=== PATIENT | female | born 1970 | race Caucasian/White ===

== ENCOUNTER 2018-03-27 08:24 | Emergency (ER) | payer OTHER ==
[~2018-03-27] VITALS: Ht 160 cm; Wt 55.0 kg
[2018-03-27] MEDS ORDERED: HYDROCODONE/ACETAMINOPHEN 5/325MG TABLET PO ONE (09:45)
[2018-03-27] MEDS ORDERED: BACITRACIN ZINC OINT UDPKT TOP ONE (10:00)
[2018-03-27 11:31] VITALS: BP 101/64
== END 2018-03-27 11:36 | disposition home or self-care (01) ==
LOC: ER 08:24
DX: S00.81XA Abrasion of other part of head, initial encounter (principal); S10.83XA Contusion of other specified part of neck, initial encounter; S20.229A Contusion of unspecified back wall of thorax, initial encounter; S00.211A Abrasion of right eyelid and periocular area, initial encounter; V43.52XA Car driver injured in collision with other type car in traffic accident, initial encounter; Y93.89 Activity, other specified; Y92.488 Other paved roadways as the place of occurrence of the external cause
CPT/HCPCS: 70450; 72125; 81025; 99284